=== PATIENT | male | born 1955 | race Caucasian/White ===

== ENCOUNTER 2022-11-28 05:48 | Day surgery (SDC) | payer MEDICARE ==
[2022-11-28] MEDS ORDERED: Lactated Ringers 1,000 ML IV SCH (06:30)
[2022-11-28] MEDS ORDERED: Lactated Ringers 1,000 ML IV ONE (06:49)
[2022-11-28] MEDS ORDERED: DIPRIVAN 200 MG/20 ML IV ONE ×2 (07:21→07:34)
[2022-11-28] MEDS ORDERED: Versed 2 MG/2 ML Injection ONE (07:21)
[2022-11-28 08:08] VITALS: PULSE 62
[2022-11-28 08:25] VITALS: BP 128/76; O2SAT 98
--- NOTE | 2022-11-28 08:41 | OP ---
SURGERY DATE/TIME: 11/28/2022 0130 PREOPERATIVE DIAGNOSIS: Screening exam, history of colon polyps. POSTOPERATIVE DIAGNOSIS: Normal colon. PROCEDURE: Colonoscopy. SURGEON: Dr. Thomas. ANESTHESIA: MAC. Medications given by anesthesia department. HISTORY: The patient is a 67-year-old white male patient presenting now for colonoscopic evaluation. The patient reports his previous colonoscopy he had polyps removed five years ago. The patient was described the risks of the procedure including risk of perforation, phlebitis, untoward reaction to medication, bleeding and missed lesions. The patient verbalized his understanding and desired to have the procedure performed. DESCRIPTION OF PROCEDURE: The patient was given the medications by the anesthesia department. He had continuous pulse oximetry, ECG monitoring and intermittent blood pressure monitoring during the examination. He was placed in the left lateral decubitus position. A digital rectal examination was performed and revealed normal anal sphincter tone, no masses and normal prostate. The flexible Olympus pediatric colonoscope was used to intubate the rectum. A view of the colon was developed sequentially to the cecum. Upon insertion and withdrawal, including a retroflex view in the rectum, no mucosal lesions were encountered. The scope was removed from the patient who tolerated the procedure well and was sent back to OP recovery in good condition. The prep was noted to be good.
== END 2022-11-28 08:28 | disposition home or self-care (01) ==
LOC: SDC 05:48
PROVIDERS: ATTEND Family Medicine
DX: Z12.11 Encounter for screening for malignant neoplasm of colon (principal); Z09 Encounter for follow-up examination after completed treatment for conditions other than malignant neoplasm; Z86.010 Personal history of colon polyps
CPT/HCPCS: J2250; J2704